=== PATIENT | female | born 1995 | race Caucasian/White ===

== ENCOUNTER → 2017-02-18 | Outpatient (CLI) | payer OTHER | END | disposition home or self-care (01) | LOC: C.PAPS 15:55 | PROVIDERS: ATTEND Obstetrics & Gynecology | DX: Z12.4 Encounter for screening for malignant neoplasm of cervix (principal) ==

== ENCOUNTER → 2018-05-16 | Outpatient (CLI) | payer OTHER | END | disposition home or self-care (01) | LOC: C.PAPS 17:49 | PROVIDERS: ATTEND Obstetrics & Gynecology | DX: Z12.4 Encounter for screening for malignant neoplasm of cervix (principal) ==

== ENCOUNTER 2025-08-31 10:03 | Inpatient (IN) ==
[2025-08-31] MEDS ORDERED: LIDOCAINE 1% LOCAL 20 ML VIAL INFIL PRN (10:25)
[2025-08-31] MEDS ORDERED: OXYTOCIN 30 UNITS/NSS 30 UNITS/500 ML BAG IV PRN ×2 (10:25→16:40)
[2025-08-31] MEDS ORDERED: CALCIUM CARBONATE 500 MG CHEWABLE TAB PO PRN (10:25)
[2025-08-31] MEDS: LACTATED RINGER'S 1,000 ML IV PRN (10:35)
--- NOTE | 2025-08-31 10:51 | History & Physical Report ---
Date of Service August 31, 2025 Assessment & Plan (1) 39 weeks gestation of : (2) Supervision of normal first : (3) Anxiety and depression: Plan 30 y/o at 39w 5d admitted today for spontaneous onset of labor. Contractions started this AM around 0600, currently about q3 min. complicated by anxiety/depression on lexapro Rh(+). Rubella immune Pitocin ordered IV fluids epidural when desired AROM when indicated continue FHT - category I anticipate . Admission and Anticipated Discharge Date Admission Date: August 31, 2025 History of Present Illness Chief Complaint: labor Primary Care Provider: Shante Nelson is a 30 y/o currently at 39w 5d with an DEMARCO 09/02/25 as determined by LMP who is admitted to L&D this morning for labor. States her contractions started around 0600 this morning and currently are 3-4 minutes apart. Did have no loss of fluid/membrane rupture. Endorses good movement. Her was complicated by depression/anxiety. External FHT and external uterine monitors used; Category I tracing; moderate variability. Had regular appointments with OB. OB Labs: Blood Type O Positive 01/20/25 Antibody Screen NEGATIVE 01/20/25 Hgb 11.6 g/dl (12.0-16.0) L 06/26/25 Hct 35.2 % (37.0-47.0) L 06/26/25 MCV 86.7 fL (80.0-100.0) 01/20/25 Plt Count 364 K/uL (130-400) 01/20/25 Rubella IgG Antibody Immune (Immune) 01/20/25 Treponema pallidum Ab Negative (Negative) 06/26/25 Hep Bs Antigen Negative (Negative) 01/20/25 Hepatitis C Antibody Negative (Negative) 01/20/25 HIV 1&2 Ab/P24 Ag 4thGn Negative (Negative) 01/20/25 Glucose 1 Hr 50 gm 161 mg/dl (70-130) H 03/22/25 OB Optional Labs: Chlamydia trachomatis RNA Not Detected (NotDetected) 01/20/25 Neisseria gonorrhoeae RNA Not Detected (NotDetected) 01/20/25 Thyroid Stimulating Hormone (TSH) 0.884 uIu/ml (0.300-4.500) 11/26/18 ROS: Denies fever, chills, sweats Denies shortness of breath, difficulty breathing, chest pain, palpitations, chest pressure. Denies breast pain. Denies dysuria. Denies headache or changes in vision. Allergies Allergy/AdvReac Type Severity Reaction Status Date / Time No Known Allergies Allergy Verified 08/24/25 15:23 Home Medications Medication Instructions Recorded Confirmed Type escitalopram oxalate [Lexapro] 10 PO 01/15/25 08/24/25 History 21-iron fu-folic acid PO 01/15/25 08/24/25 History [ Complete] Patient History Medical History (Updated 08/31/25 @ 12:11 by Andie Perla MD, FACOG) History of PCOS History of chicken pox Surgical History (Updated 01/15/25 @ 15:21 by Kavitha Jenkins) S/P ACL repair S/P wisdom tooth extraction S/P inguinal hernia repair S/P tonsillectomy Family History (Updated 01/15/25 @ 15:11 by Kavitha Jenkins) Grandmother (Maternal) Breast cancer Mother delivery delivered patient at 27 weeks Denies family history of Ovarian cancer Colorectal cancer Social History (Updated 01/15/25 @ 15:23 by Kavitha Jenkins) Smoking Status: Never smoker Do You Dip or Chew Tobacco: No; Hx Alcohol Use: No Hx Substance Use: No Preferred Language: [place] Communication Ability: Effective Pediatric Occupational Therapist Required: No Beliefs That Will Affect Care: None marital status: marital status details: Charlie Hartmann (29) [phone] Current Living Situation: Spouse Current Living Situation Comment: lives with spouse, dogs current occupational status: employed 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 No acute distress. Cardiac: tachycardic, RR, no murmur, rubs or gallop Respiratory: CTA BL. Taking slow deep breaths, otherwise no notable increased work of breathing or accessory muscle usage. Symmetrical rise and fall of chest Abdomen; soft, gravid, normal to inspection. Pelvic: 4/80/-[address] Perla Lower Extremities: No lower extremity edema or swelling. No deep calf pain. Khang's negative bilaterally Results & Data Vital Signs (Past 12 Hours) Vital Signs Pulse BP 08/31/25 10:21 85 08/31/25 10:21 160/101 H 08/31/25 10:08 93 H 176/106 H Supervising Physician Co-Signing Physician Notes Resident Physician Supervision Note: I interviewed and examined the patient. Discussed with Dr. Smith and agree with findings and plan as documented in the note. Any exceptions or clarifications are listed here: 30yo at term with early active labor. Abd soft gravid nt, vss, toco q2 ctx, fhts categ 1. sve as noted. Will plan epidural and then arom. Patient aware may need pit aug and agrees. Documented By: Andie Perla MD, FACOG
[2025-08-31 11:09] LABS: Hematocrit (blood only) 37.7 % (37.0-47.0); Hemoglobin 12.6 g/dL (12.0-16.0); Mean Corpuscular Hemoglobin 27.8 pg (25.0-34.0); Mean Corpuscular Volume 83.0 fL (80.0-100.0); Platelet Count 251 K/uL (130-400); RDW Standard Deviation 41.4 fL (36.4-46.3); Red Blood Count 4.54 M/uL (4.20-5.40); White Blood Count 8.03 K/ul (4.8-10.8)
[2025-08-31] MEDS ORDERED: SODIUM CHLORIDE 0.9% PF INJ 10 ML VIAL EPI PRN (11:15)
[2025-08-31] MEDS ORDERED: fentANYL 2 MCG/ML BUPIVacaine 0.125%-NSS 100ML BAG EPI PRN (11:15)
[2025-08-31] MEDS ORDERED: NALBUPHINE HCL INJ 10 MG/ML AMP IV PRN (11:15)
[2025-08-31] MEDS ORDERED: NALOXONE HCL 0.4 MG/1 ML VIAL/CARP IV PRN (11:15)
[2025-08-31] MEDS ORDERED: NALOXONE HCL 1 MG in SODIUM CHLORIDE 0.9% 1,000 ML IV PRN (11:15)
[2025-08-31] MEDS ORDERED: BUPIVACAINE 0.25% PF 30 ML VIAL EPI PRN (11:15)
[2025-08-31] MEDS ORDERED: ROPIVACAINE 0.5% PF 5 MG/ML 20 ML VIAL EPI PRN (11:15)
[2025-08-31] MEDS ORDERED: diphenhydrAMINE 50 MG/ML VIAL IV PRN (11:15)
[2025-08-31] MEDS ORDERED: LIDOCAINE 2% MPF LOCAL 5 ML VIAL EPI PRN (11:15)
--- NOTE | 2025-08-31 11:15 | Anesthesiology Consultation ---
Date of Service August 31, 2025 Assessment & Plan Chart Review Chart Review: Acceptable Risk for Labor Epidural Consults Requested none History Height/Weight Height: 5 ft 8 in Weight: 102.076 kg Allergies Allergy/AdvReac Type Severity Reaction Status Date / Time No Known Allergies Allergy Verified 08/24/25 15:23 Medications Home Medications Medication Instructions Recorded Confirmed Last Taken escitalopram oxalate [Lexapro] 10 PO 01/15/25 08/24/25 08/31/25 06:00 21-iron fu-folic acid PO 01/15/25 08/24/25 Unknown [ Complete] Active Medications Generic Name Dose Route Start Last Admin Trade Name Freq PRN Reason Stop Dose Admin Lactated Ringer's 1,000 mls @ 125 mls/hr 08/31/25 10:25 08/31/25 11:05 Lr IV 09/02/25 10:24 125 mls/hr .Q8H PRN Infusion L&D Protocol Protocol Past Medical History Medical History (Updated 08/31/25 @ 10:49 by Ely Smith DO) Anxiety and depression (07/15/21) History of PCOS History of chicken pox Past Family History Family History (Updated 01/15/25 @ 15:11 by Kavitha Jenkins) Grandmother (Maternal) Breast cancer Mother delivery delivered patient at 27 weeks Denies family history of Ovarian cancer Colorectal cancer Past Surgical History Surgical History (Updated 01/15/25 @ 15:21 by Kavitha Jenkins) S/P ACL repair S/P wisdom tooth extraction S/P inguinal hernia repair S/P tonsillectomy Social History Smoking Status: Never smoker Do You Dip or Chew Tobacco: No Hx Alcohol Use: No Hx Substance Use: No Physical Exam Vital Signs Last Vital Signs Temp 36.6 C 08/31/25 10:49 Pulse 85 08/31/25 10:21 Resp 22 08/31/25 10:49 BP 160/101 H 08/31/25 10:21 Testing Laboratory Results 08/31/25 10:46
[2025-08-31] MEDS: LIDOCAINE 2%/EPINEPHRINE 1:200,000 20 ML PF ONE (11:35)
[2025-08-31] MEDS: fentANYL 2 MCG/ML BUPIVacaine 0.125%-NSS 100ML BAG ONE (11:36)
--- NOTE | 2025-08-31 13:20 | Labor Progress Brief Note ---
Date of Service August 31, 2025 Subjective slowly became comfortable with epidural. some bps taken with pain 10/10 mild range when between painful ctx. no sosa or visual change or ruq pain. Assessment & Plan (1) 39 weeks gestation of : (2) Normal labor: Plan: good progress in labor, expect 2nd stage soon. (3) Gestational hypertension: Plan: bps were bad and even in between ctx before epidural and now with epidural working, not severe range but elevated, at least with gest htn, chem/liver profile ordered, urine dip was negative on arrival, can send urine prot/creat ratio once voids again. if bps severe range will treat and then add magnesium seizure prophylaxis. for now will hold off. made pt aware of all of this and my concerns. Admission and Anticipated Discharge Date Admission Date: August 31, 2025 Physical Exam Constitutional: WD/WN, vitals as above Genitourinary: Manual OB Exam: + cervical dilation 9 cm, + cervical effacement 100%, + station -1 and + amniotic fluid (arom) meconium OB Exam Monitor Tracing: + external FHT monitor used, + external uterine monitor used, + category I and + normal FHT variability Results & Data Vital Signs (Past 12 Hours) Vital Signs Temp Pulse Resp BP Pulse Ox 08/31/25 13:12 97 08/31/25 13:12 96 H 08/31/25 13:12 91 H 08/31/25 13:12 152/93 H 08/31/25 13:07 97 08/31/25 13:07 95 H 08/31/25 13:02 96 08/31/25 13:02 99 H 08/31/25 13:02 96 H 08/31/25 13:02 156/94 H 08/31/25 12:57 96 08/31/25 12:57 97 H 08/31/25 12:52 96 08/31/25 12:52 99 H 08/31/25 12:52 101 H 08/31/25 12:52 160/96 H 08/31/25 12:47 97 08/31/25 12:47 98 H 08/31/25 12:42 97 08/31/25 12:42 89 08/31/25 12:42 162/96 H 08/31/25 12:37 97 08/31/25 12:37 96 H 08/31/25 12:32 96 12/02/25 12:32 93 H 08/31/25 12:30 96 H 08/31/25 12:30 140/74 08/31/25 12:27 96 08/31/25 12:27 92 H 08/31/25 12:27 88 08/31/25 12:27 139/76 08/31/25 12:22 96 08/31/25 12:22 89 08/31/25 12:17 95 08/31/25 12:17 92 H 08/31/25 12:16 89 08/31/25 12:16 142/91 H 08/31/25 12:12 97 08/31/25 12:12 84 08/31/25 12:11 86 08/31/25 12:11 168/102 H 08/31/25 12:07 96 08/31/25 12:07 84 08/31/25 12:02 96 08/31/25 12:02 87 08/31/25 12:01 86 08/31/25 12:01 164/97 H 08/31/25 11:57 95 08/31/25 11:57 94 H 08/31/25 11:54 80 08/31/25 11:54 179/93 H 08/31/25 11:52 97 08/31/25 11:52 89 08/31/25 11:50 88 08/31/25 11:50 189/98 H 08/31/25 11:47 96 08/31/25 11:47 96 H 08/31/25 11:42 97 08/31/25 11:42 97 H 08/31/25 11:40 90 08/31/25 11:40 143/88 H 08/31/25 11:37 95 08/31/25 11:37 101 H 08/31/25 11:35 96 H 08/31/25 11:35 164/82 H 08/31/25 11:32 96 08/31/25 11:32 88 08/31/25 11:29 88 08/31/25 11:29 176/102 H 08/31/25 11:27 98 08/31/25 11:27 102 H 08/31/25 11:22 97 08/31/25 11:22 92 H 08/31/25 10:49 97.9 F 22 08/31/25 10:21 85 08/31/25 10:21 160/101 H 08/31/25 10:08 93 H 176/106 H Coding Level of Care Code None Diagnoses 39 weeks gestation of Z3A.39 Normal labor O80; Z37.9 Gestational hypertension O13.9
[2025-08-31 13:31] LABS: Alanine Aminotransferase 7.0 U/L (7-52); Albumin Globulin Ratio 1.4 (0.9-2); Albumin Level 3.6 gm/dl (3.4-5.0); Alkaline Phosphatase 138.0 U/L (34-104); Anion Gap 12.0 (3-11); Bilirubin,Total 0.4 mg/dl (0.2-1.0); Blood Urea Nitrogen 8.0 mg/dl (6-23); Calcium 8.9 mg/dl (8.6-10.3); Carbon Dioxide 18.0 mmol/L (21-32); Chloride 106.0 mmol/L (98-107); Creatinine Clr Calc Pharmacy 192.1 ml/min; Globulin 2.5 gm/dl (2.5-4.0); Glucose 83.0 mg/dl (70-99(Fasting)); Potassium 4.2 mmol/L (3.5-5.1); Sodium 136.0 mmol/L (136-145); Total Protein 6.1 gm/dl (6.0-8.3)
[2025-08-31] MEDS ORDERED: IBUPROFEN 600 MG TAB PO PRN (16:40)
[2025-08-31] MEDS ORDERED: HYDROCORTISONE ACETATE 25 MG SUPP PR PRN (16:40)
--- NOTE | 2025-08-31 16:42 | Delivery Summary ---
Vaginal Delivery Summary Date of Service August 31, 2025 Vaginal Delivery Summary The patient dilated to complete and pushed to deliver a viable female infant Apgars 7 and 9 via over intact perineum. Mouth and nose bulb suctioned at perineum. Shoulders and body delivered with ease. was not vigorous but was crying at (maternal use ssri). Cord clamped at 30 seconds of life and to maternal abdomen where the cord was then doubly clamped and cut. Placenta delivered spontaneously and intact, three-vessel cord. Hemostasis achieved with dilute pitocin and uterine massage. Vaginal laceration repaired with 3-0 vicryl. Cervix and sulci intact. QBL 265 cc. Mother and baby stable in recovery. [facility] Vaginal Delivery Charge Delivery Type Details:
--- NOTE | 2025-08-31 18:19 | Anesthesia Procedure Note ---
Date of Service August 31, 2025 Anesthesia Post Epidural Note Vital Signs Vital Signs: Temp Pulse Resp BP Pulse Ox 36.8 C 122 H 19 151/89 H 92 08/31/25 14:30 08/31/25 18:04 08/31/25 14:30 08/31/25 18:04 08/31/25 16:02 Pain Intensity Bilateral Abdomen: Pain Intensity: 8 Notes Mental Status: alert / awake / arousable and participated in evaluation Nausea / Vomiting: adequately controlled Pain: adequately controlled Airway Patency, RR, SpO2: stable & adequate BP & HR: stable & adequate Hydration State: stable & adequate Neuraxial Anesthesia: was administered and sensory block is resolving Anesthetic Complications: no major complications apparent and Pt Satisfied with anesthetic care Epidural: Removed without complications and With tip intact
[2025-08-31] MEDS: DIPHTHER/TETAN/PERTUS Vaccine (Tdap, Adol/Adult) 0.5mL IM ONE (19:05)
[2025-08-31] MEDS: BUPIVACAINE 0.25% PF 30 ML VIAL ONE (19:05)
[2025-08-31] MEDS: SODIUM CHLORIDE 0.9% PF INJ 10 ML VIAL ONE (19:05)
[2025-08-31] MEDS: DOCUSATE SODIUM 100 MG CAP PO SCH (20:14)
[2025-08-31] MEDS: LABETALOL HCL 100 MG TAB PO SCH (20:15)
[2025-08-31] MEDS: BUPIVACAINE 0.25% PF 30 ML VIAL EPI STA (23:18)
[2025-08-31] MEDS: SODIUM CHLORIDE 0.9% PF INJ 10 ML VIAL EPI STA (23:19)
[2025-08-31] MEDS: LIDOCAINE 2%/EPINEPHRINE 1:200,000 20 ML PF EPI STA (23:19)
[2025-09-01] MEDS: ACETAMINOPHEN 325 MG TAB PO PRN (02:30)
[2025-09-01 03:14] VITALS: RESP 18
--- NOTE | 2025-09-01 06:09 | Obstetrical Progress Note ---
Date of Service September 01, 2025 Assessment & Plan (1) examination following vaginal delivery: (2) Gestational hypertension: (3) Anxiety and depression: Plan 30 y/o ppd #1 s/p . complicated by GHTN. Feels well today. BPs improving. continue labetalol 100mg po bid. Resumed home lexapro for anxiety/depression continue routine care Encourage ambulation. Pain controlled with ibuprofen Hgb stable Patient would like to be discharged home later today. Plan to re-evaluate at 1600 (24hr from delivery), pending BP and pain control. For now, anticipate home discharge today with plan to f/u with Dr. Perla in 6 weeks. Will need an in- office BP check on Saturday09/06/25 Admission and Anticipated Discharge Date Admission Date: August 31, 2025 Supervising Physician Co-Signing Physician Notes Resident Physician Supervision Note: I was present with Dr. Smith during the history and exam. I discussed the case with the resident and agree with the findings and plan as documented in the note. Any exceptions or clarifications are listed here: stable doing well, bottle feeding, eating, voiding ambulating. no bleeding issues. abd soft ff 2 down nt, ext nt calves. ppd#1 s/p , gest htn, on labetalol, bps look good so far. will monitor through the day and can dc home later today as pt desires, will need final script of labetalol sent to pharm. instructions reviewed. bp check by thursday 09/06 and plan 6wk pp check. rhpos, ri, bottle. Documented By: Andie Perla MD, FACOG Subjective 30 y/o ppd #1 s/p . complicated by GHTN. Doing well this morning. no issues overnight. BPs were elevated during delivery yesterday, started on labetalol 100mg po bid - BP seem to be better controlled now. Ambulation: ambulating normally Voiding: no voiding problems Passing Gas:: Yes Diet Tolerance:: regular diet Lochia:: Small Feeding Type:: bottle feeding Current Pain Level: minimal - well controlled with ibuprofen/tylenol Resting comfortably this AM in NAD. Denies GUERRIER, CP, SOB, N/V/D, LE pain/swelling. Review of Systems Review of Systems: as above Physical Exam Physical Exam: General: patient resting comfortably, NAD, non-toxic in appearance, A&Ox4, answers questions appropriately. Skin: warm, dry, intact HEENT: NC/AT, anicteric sclera, conjunctiva without injection, moist mucus membranes. Heart: +S1/S2, regular, no m/r/g Lungs: equal air entry bilaterally, no rales/rhonchi/wheezes Abd: +BS, soft, NT/ND, uterine fundus firm at umbilicus Ext: warm, no clubbing/cyanosis or edema, Khang's neg. Neuro: no focal neurologic deficits, moving all extremities. Results & Data Vital Signs (Past 12 Hours) Vital Signs Temp Pulse Pulse Resp BP BP BP 09/01/25 03:12 37.1 C 88 18 122/76 08/31/25 23:20 37.1 C 93 H 16 117/73 08/31/25 19:50 37.2 C 102 H 18 137/92 08/31/25 18:19 116 H 08/31/25 18:19 138/78 Pulse Ox O2 Del Method 09/01/25 03:12 97 Room Air 08/31/25 23:20 97 Room Air 08/31/25 19:50 92 Room Air 08/31/25 18:19 08/31/25 18:19
[2025-09-01] MEDS: PRENATAL VITAMIN 1 TAB PO SCH (07:30)
[2025-09-01] MEDS: BENZOCAINE 20% SPRY 85 APPLN/85 GM CAN EXT PRN (07:31)
[2025-09-01] MEDS: ESCITALOPRAM OXALATE 10 MG TAB PO SCH (07:41)
[2025-09-01 13:38] VITALS: O2SAT 97
[2025-09-01 16:36] VITALS: BP 113/65; PULSE 91; TEMP 98.2
== END 2025-09-01 17:25 | disposition home or self-care (01) | DRG 807 ==
LOC: OPB 10:03 → 4S1 10:04 → 4E2 19:18